=== PATIENT | female | born 2000 | race Hispanic/Latino ===

== ENCOUNTER 2021-11-15 10:11 | Day surgery (SDC) | payer OTHER ==
[2021-11-15] MEDS ORDERED: propofoL 200 MG/20 ML VIAL IV ONE (10:33)
[2021-11-15] MEDS ORDERED: LIDOCAINE MPF (2%) 20 MG/1 ML VIAL 5 ML ONE (10:33)
[2021-11-15] MEDS ORDERED: fentaNYL 100 MCG/2 ML INJ ONE (10:33)
[2021-11-15] MEDS ORDERED: LACTATED RINGERS 1,000 ML ONE (10:51)
--- NOTE | 2021-11-15 10:53 | Anesthesia Consultation ---
Anesthesia Consult and Med Hx Date of service: 11/15/21 - Airway Anesthetic Teeth Evaluation: Good ROM Head & Neck: Adequate Mental/Hyoid Distance: Adequate Mallampati Class: Class II Intubation Access Assessment: Probably Good - Pulmonary Exam CTA: Yes - Cardiac Exam Cardiac Exam: RRR - Pre-Operative Health Status ASA Pre-Surgery Classification: ASA1 Proposed Anesthetic Plan: General - Pulmonary Hx Smoking: No Hx Asthma: No Hx Sleep Apnea: No (YOHAN PRE SCREEN NEGATIVE) - Cardiovascular System Hx Hypertension: No Hx Coronary Artery Disease: No - Central Nervous System Hx Seizures: No CVA: No Hx Psychiatric Problems: No - Gastrointestinal Hx Gastroesophageal Reflux Disease: No - Endocrine Hx Renal Disease: No Hx Liver Disease: No Hx Non-Insulin Dependent Diabetes: No Hx Thyroid Disease: No - Hematic Hx Anemia: No Hx Sickle Cell Disease: No - Other Systems Hx Alcohol Use: Yes (occasional) Hx Substance Use: No Hx Cancer: No Hx Obesity: No - Additional Comments Anesthesia Medical History Comments: no hx of anesthetic complications
--- NOTE | 2021-11-15 10:53 | Anesthesia Day of Surgery ---
Anesthesia Day of Surgery - Day of Surgery Patient Examined: Yes Patient H&P Reviewed: Yes Patient is NPO: Yes
[2021-11-15] MEDS ORDERED: LACTATED RINGERS 1,000 ML IV SCH (11:45)
[2021-11-15] MEDS ORDERED: ACETAMINOPHEN 500 MG TAB PO ONE (11:50)
[2021-11-15] MEDS ORDERED: ONDANSETRON 4 MG/2 ML INJ IV PRN (11:50)
[2021-11-15] MEDS ORDERED: HYDROmorphone 0.5 MG/0.5 ML INJ IV PRN ×2 (11:50)
[2021-11-15] MEDS ORDERED: ceFAZolin/STERILE WATER 2 GM/20 ML SYRINGE IV NR (12:00)
[2021-11-15] MEDS ORDERED: MIDAZOLAM 2 MG/2 ML INJ IV SCH (12:00)
[2021-11-15] MEDS ORDERED: SCOPOLAMINE TRANSDERMAL PATCH 72 HR TD SCH (12:00)
[2021-11-15] MEDS ORDERED: CELECOXIB 200 MG CAP PO SCH (12:00)
[2021-11-15] MEDS ORDERED: BUPIVACAINE-EPINEPHRINE/PF 0.25%-1:200,000 (30 ML) VIAL INFILTRATI ONE (12:14)
[2021-11-15] MEDS ORDERED: EPINEPHrine 30 MG/30 ML INJ IV ONE (12:15)
[2021-11-15] MEDS ORDERED: BUPIVACAINE/PF (0.25%) 2.5 MG/ML 30 ML VIAL INFILTRATI ONE ×2 (12:51→13:00)
[2021-11-15] MEDS ORDERED: MAGNESIUM OXIDE 400 MG TAB PO ONE (13:00)
[2021-11-15] MEDS ORDERED: EPINEPHrine 1 MG/10 ML SYRINGE IV ONE (13:00)
[2021-11-15] MEDS ORDERED: SODIUM CHLORIDE 0.9% IRRIG SOLN 3000 ML IR ONE (13:00)
[2021-11-15] MEDS ORDERED: ONDANSETRON 4 MG/2 ML INJ ONE ×2 (13:29→14:01)
[2021-11-15] MEDS ORDERED: KETOROLAC 30 MG/1 ML INJ ONE (13:29)
[2021-11-15] MEDS ORDERED: dexAMETHasone 20 MG/5 ML VIAL ONE (13:29)
--- NOTE | 2021-11-15 13:43 | Operative Report ---
Operative Report Operative Report: Pre-op diagnosis: Left knee lateral meniscus tear Postop diagnosis: Same Procedure: Left knee lateral meniscus repair Surgeon: Dr. Saman Corona Mysql Dba: None Anesthesia: General Findings: Tear of the posterior horn of the lateral meniscus medial to the popliteus tendon, previous ACL reconstruction Specimens none Drains none Tourniquet time: 25 minutes Indications: Patient is a 21-year-old female who had previous ACL reconstruction she injured her left knee. Evaluation work-up was suggestive of a lateral meniscus tear. Recommended patient undergo surgical management. Risk benefits and limitations of surgery were discussed with the patient including bleeding infection injury to nerves or blood vessels and need for reoperation. Patient agreed and consented to undergo surgery. Technique: In the preop holding area the site was marked with a surgical marking pen. The extremity was prepped and draped in sterile fashion and a supine position. Standard anteromedial and anterolateral portals were placed and diagnostic arthroscopy was performed after inflating the tourniquet to 300 mmHg. Diagnostic arthroscopy revealed normal patellofemoral medial and lateral articular cartilage. The previous ACL reconstruction was visualized the ACL was noted to be intact. There was some synovitis in the anterior horn of the lateral meniscus. The lateral meniscus was visualized there was noted to be a tear of the posterior horn it would appear to be a high-grade partial tear in the posterior aspect of the meniscus however there was dramatic instability in the posterior aspect of the meniscus as the meniscus did pull into the joint with probing. Decision was made to perform an arthroscopic lateral meniscus repair. Utilizing a sequent meniscal repair implant 4 sutures were placed into the meniscus. Care was taken posteriorly not to penetrate the capsule. Multiple sutures were placed around the periphery of the meniscus in order to stabilize it in the posterior aspect the joint. The remaining portion of the knee appear to be normal the arthroscope was then removed and incisions were closed with 3-0 nylon. Portal sites were injected with 0.25% Marcaine. Sterile dressing was applied patient was awakened and taken to recovery room in stable condition. Postop plan patient will be nonweightbearing for 1 week we will work with the physical therapist on range of motion exercises we we will have the patient wear a brace for 6 weeks we will see her back for follow-up visit in 2 weeks time
[2021-11-15] MEDS ORDERED: fentaNYL 100 MCG/2 ML INJ IV ONE (14:00)
--- NOTE | 2021-11-15 16:34 | Post Anesthesia Evaluation ---
- Post Anesthesia Evaluation Patient Participated: Yes Airway Patent: Yes Stable Respiratory Function: Yes Nausea/Vomiting: No Temp > 96.8F: Yes Pain Manageable: Yes Adequeate Hydration: Yes Anesthesia Complications: No Block Receding Appropriately: Not Applicable Patient on Ventilator: No
[2021-11-15 17:53] VITALS: BP 115/83
== END 2021-11-15 15:00 | disposition home or self-care (01) ==
LOC: OR 10:11
PROVIDERS: ATTEND Orthopaedic Surgery Sports Medicine
DX: S83.282A Other tear of lateral meniscus, current injury, left knee, initial encounter (principal); M65.88 Other synovitis and tenosynovitis, other site; Z72.89 Other problems related to lifestyle; Z98.890 Other specified postprocedural states; X58.XXXA Exposure to other specified factors, initial encounter; Y93.89 Activity, other specified; Y92.89 Other specified places as the place of occurrence of the external cause; Y99.8 Other external cause status
CPT/HCPCS: 29882; 81025; C1713; J0171; J0690; J1100; J1885; J2405; J2704; J3010; J3490; J7120